=== PATIENT | male | born 1960 | race Hispanic/Latino ===

== ENCOUNTER 2018-08-24 01:15 | Emergency (ER) | payer BC ==
[2018-08-24 01:37] VITALS: BP 130/75; PULSE 71; RESP 18; TEMP 97.7; O2SAT 99
[2018-08-24] MEDS ORDERED: Lidocaine 5% Patch TD ONE (02:25)
[2018-08-24] MEDS: Lidocaine 5% Patch TD STA (02:29)
--- NOTE | 2018-08-24 02:53 | ED PDOC ---
Upper Extremity Pain/Injury Time Seen by Provider: 08/24/18 02:02 Chief Complaint (Nursing): Upper Extremity Problem/Injury Chief Complaint (Provider): Upper Extremity Problem/Injury History Per: Patient History/Exam Limitations: no limitations Onset/Duration Of Symptoms: Days (5) Additional Complaint(s): 58 y/o male with no significant past medical history presents to the ED complaining of left shoulder and left scapular pain for x5 days. Patient reports that he was away in [place] and developed left scapular pain that caused extreme discomfort associated with trouble moving his left arm and left shoulder. Patient describes the pain as sharp and stabbing. He states that he we nt to the ER in [place] and was given Motrin, Vicodin, and Nabumetone. Patient reports that he has been taking medication as prescribed with mild relief initially but pain has now become worse. He denies any associated injury or activity. He further denies chest pain, shortness of breath, fever, cough, nausea, vomiting. Patient reports that while at the ED in [place] he had x-rays done that were all normal. Past Medical History Reviewed: Historical Data, Nursing Documentation, Vital Signs Vital Signs: Last Vital Signs Temp 97.7 F 08/24/18 01:17 Pulse 71 08/24/18 01:17 Resp 18 08/24/18 01:17 BP 130/75 08/24/18 01:17 Pulse Ox 99 08/24/18 01:17 - Medical History PMH: No Chronic Diseases - Surgical History Surgical History: Hernia Repair Other surgeries: Right knee arthroscopic surgery - Family History Family History: States: Unknown Family Hx - Social History Current smoker - smoking cessation education provided: No Alcohol: None Drugs: Denies - Home Medications Home Medications: Ambulatory Orders Medication Instructions Recorded Lidocaine 5% [Lidoderm] 1 ea TD QAM #10 patch 08/24/18 - Allergies Allergies/Adverse Reactions: Allergies Allergy/AdvReac Type Severity Reaction Status Date / Time Penicillins Allergy unknown Verified 08/24/18 01:29 childhood allergy Review of Systems ROS Statement: Except As Marked, All Systems Reviewed And Found Negative Constitutional: Negative for: Fever Cardiovascular: Negative for: Chest Pain Respiratory: Negative for: Cough, Shortness of Breath Gastrointestinal: Negative for: Nausea, Vomiting Musculoskeletal: Positive for: Shoulder Pain, Arm Pain, Back Pain Physical Exam - Reviewed Nursing Documentation Reviewed: Yes Vital Signs Reviewed: Yes - Physical Exam Appears: Positive for: Uncomfortable Head Exam: Positive for: ATRAUMATIC, NORMAL INSPECTION, NORMOCEPHALIC Skin: Positive for: Normal Color, Warm, DRY Eye Exam: Positive for: EOMI, Normal appearance, PERRL Back: Positive for: Vertebral Tenderness (left sided supraclavicular tenderness; left sided scapular), Muscle Spasm (trapezius) Extremity: Positive for: Normal ROM. Negative for: Pedal Edema, Deformity Neurologic/Psych: Positive for: Alert, Oriented. Negative for: Motor/Sensory Deficits - Laboratory Results Result Diagrams: 08/24/18 02:35 08/24/18 02:35 - ECG O2 Sat by Pulse Oximetry: 99 (RA) Pulse Ox Interpretation: Normal Medical Decision Making Medical Decision Making: Time: 02:14 Initial Impression: 58 y/o with worsening left scapular and left shoulder pain Initial Plan: * Labs * Flexeril * Lidocaine * Toradol 04:45 Patient reports mild improvement of symptoms. Provider offered additional pain medication in form of IV morphine as well as CT Scan imaging however patient declined stating e has a follow up with Dr. Lockhart at 10:00. Provider also explained possibility of shingles or other neuralgia which may be etiology of pain. Patient provided with return precautions. Patient was told to come back if he changed his mind regarding further imaging. Diagnosis is left sided shoulder pain and scapular pain. Patient stable for discharge. Scribe Attestation: Documented by Maximo Valencia acting as a scribe for Nikhil Mccurdy MD. Provider Scribe Attestation: All medical record entries made by the Scribe were at my direction and personally dictated by me. I have reviewed the chart and agree that the record accurately reflects my personal performance of the history, physical exam, medical decision making, and the department course for this patient. I have also personally directed, reviewed, and agree with the discharge instructions and disposition. Disposition - Clinical Impression Clinical Impression: Pain in scapula, Radiculopathy of cervical spine - Patient ED Disposition Is Patient to be Admitted: No - Disposition Referrals: Dontrell Lockhart MD [Staff Provider] - Disposition: Routine/Home Disposition Time: 04:45 Condition: STABLE Additional Instructions: OTTO KHAN, thank you for letting us take care of you today. Your provider was Nikhil Mccurdy MD and you were treated for PAIN IN LEFT SHOULDER AND BACK. The emergency medical care you received today was directed at your acute symptoms. If you were prescribed any medication, please fill it and take as directed. It may take several days for your symptoms to resolve. Return to the Emergency Department if your symptoms worsen, do not improve, or if you have any other problems. Please contact your doctor or call one of the physicians/clinics you have been referred to that are listed on the Patient Visit Information form that is included in your discharge packet. Bring any paperwork you were given at [facility] with you along with any medications you are taking to your follow up visit. Our treatment cannot replace ongoing medical care by a primary care provider outside of the emergency department. Thank you for allowing the [facility] team to be part of your care today. If you had an X-Ray or CT scan: A Radiologist will review the ED reading if any change in treatment is needed we will contact you. If you had a blood, urine, or wound culture: It will take several days for the results, if any change in treatment is needed we will contact you. If you had an STI test: It will take 48 hours for the results. Please call after 1 week if you have not heard back. Prescriptions: Lidocaine 5% [Lidoderm] 1 ea TD QAM #10 patch Instructions: Shingles, Radiculopathy (DC) Forms: [employer] (K[place])
[2018-08-24 02:57] LABS: BASO % 0.5 % (0.0-2.0); EOS # 0.1 K/uL (0.0-0.7); HEMOGLOBIN 14.8 g/dL (12.0-18.0); LYMPH # 1.6 K/uL (1.0-4.3); LYMPH % 23.1 % (20.0-40.0); MEAN CORPUSCULAR HGB CONC 33.4 g/dL (33.0-37.0); MEAN PLATELET VOLUME 8.4 fl (7.2-11.7); MONO # 0.5 K/uL (0.0-0.8); MONO % 7.7 % (0.0-10.0); NEUT # 4.7 K/uL (1.8-7.0); NEUT % 66.7 % (50.0-75.0); RBC 4.64 Mil/uL (4.40-5.90); RED CELL DISTRIBUTION WIDTH 13.7 % (11.5-14.5)
[2018-08-24 02:58] LABS: MEAN CELL VOLUME 95.6 fl (80.0-94.0); MEAN CORPUSCULAR HEMOGLOBIN 31.9 pg (27.0-31.0); NRBC % 0.1 % (0.0-0.0)
[2018-08-24 03:34] LABS: ALB/GLOB RATIO 1.2 (1.0-2.1); ALBUMIN 3.9 g/dL (3.5-5.0); ALT/SGPT 50 U/L (21-72); AST/SGOT 46 U/L (17-59); BLOOD UREA NITROGEN 34 mg/dl (9-20); CALCIUM 9.5 mg/dL (8.4-10.2); GFR NON-AFRICAN AMERICAN > 60
== END 2018-08-24 04:30 | disposition home or self-care (01) ==
LOC: H.ER 01:15
DX: M54.12 Radiculopathy, cervical region (principal); Z88.0 Allergy status to penicillin; M25.519 Pain in unspecified shoulder
CPT/HCPCS: 80053; 85025; 85651; 96374; 99283; J1885